=== PATIENT | female | born 1970 | race Caucasian/White ===

== ENCOUNTER 2017-09-09 22:54 | Emergency (ER) | payer OTHER ==
[2017-09-10 00:43] VITALS: BP 116/79; PULSE 82; TEMP 98.3; BMI 27.4
--- NOTE | 2017-09-10 01:01 | PDOC ---
History of Present Illness - General Chief Complaint: Injury Stated Complaint: FALL INJURY Time Seen by Provider: 09/10/17 00:28 History Source: Patient Exam Limitations: No Limitations - History of Present Illness Initial Comments: 09/10/17 02:20 47-year-old female with a history of colitis, Lyme disease and unknown thyroid disease presents to the emergency department complaining of right anterior lower rib pains after she slipped and fell 24 hours ago. Patient states she slipped down 3 steps on her right side causing 3/10 dull nonradiating intermittent discomfort. The pain is exacerbated on touch and alleviated at rest. Patient states since her fall, the pain has subsided tremendously without any pain medication. Patient denies any head injuries, neck/back pains, chest pain, shortness of breath, abdominal pains, flank pains, urinary symptoms, extremity numbness or tingling sensation, bladder or bowel dysfunction. Occurred: reports: yesterday Pain Location: reports: other (right ant ribs) Past History - Past Medical History Allergies/Adverse Reactions: Allergies Allergy/AdvReac Type Severity Reaction Status Date / Time erythromycin base Allergy Mild Verified 09/10/17 00:42 [Erythromycin Base] Home Medications: Ambulatory Orders Ibuprofen [Motrin -] 600 mg PO QID #15 tablet 02/05/14 Ondansetron Oral Solution [Zofran Oral Solution 4 MG/5 ML -] 4 mg PO TID #10 mg 09/02/14 Tramadol HCl 50 mg PO TID #14 tablet 09/02/14 GI Disorders: Yes (colitis) Thyroid Disease: Yes (hypo) - Surgical History Appendectomy: Yes (1980) - Reproductive History (#): 7 Para: 5 - Immunization History Immunization Up to Date: (flu ) - Suicide/Smoking/Psychosocial Hx Smoking Status: No Smoking History: Never smoked Have you smoked in the past 12 months: No Number of Cigarettes Smoked Daily: 0 Information on smoking cessation initiated: No Hx Alcohol Use: No Drug/Substance Use Hx: No Substance Use Type: None Review of Systems - Review of Systems Able to Perform ROS?: Yes Comments:: 09/10/17 02:22 CONSTITUTIONAL: Absent: fever, chills, diaphoresis, generalized weakness, malaise, loss of appetite HEENT: Absent: rhinorrhea, nasal congestion, throat pain, throat swelling, difficulty swallowing, mouth swelling, ear pain, eye pain, visual Changes CARDIOVASCULAR: Absent: chest pain, loss of consciousness, palpitations, irregular heart rate, peripheral edema RESPIRATORY: Absent: cough, shortness of breath, dyspnea with exertion, orthopnea, wheezing, stridor, hemoptysis GASTROINTESTINAL: Absent: abdominal pain, abdominal distension, nausea, vomiting, diarrhea, constipation, melena, hematochezia GENITOURINARY: Absent: dysuria, frequency, urgency, hesitancy, hematuria MUSCULOSKELETAL: +right ant rib pain Absent: myalgia, arthralgia, joint swelling SKIN: Absent: rash, itching, pallor HEMATOLOGIC/IMMUNOLOGIC: Absent: easy bleeding, easy bruising, lymphadenopathy, frequent infections ENDOCRINE: Absent: unexplained weight gain, unexplained weight loss, heat intolerance, cold intolerance NEUROLOGIC: Absent: headache, focal weakness or paresthesias, dizziness, unsteady gait, seizure, mental status changes, bladder or bowel incontinence PSYCHIATRIC: Absent: anxiety, depression, suicidal or homicidal ideation, hallucinations. 09/10/17 02:22 Is the patient limited Pashto proficient: No *Physical Exam - Vital Signs Last Vital Signs Temp Pulse Resp BP Pulse Ox 98.3 F 82 20 116/79 99 09/09/17 22:54 09/09/17 22:54 09/09/17 22:54 09/09/17 22:54 09/09/17 22:54 - Physical Exam Comments: 09/10/17 02:22 GENERAL: Well developed, well nourished. Awake and alert. No acute distress. HEENT: Normocephalic, atraumatic. PERRLA, EOMI. No conjunctival pallor. Sclera are non- icteric. Moist mucous membranes. Oropharynx is clear. NECK: Supple. Full ROM. No JVD. Carotid pulses 2+ and symmetric, without bruits. No thyromegaly. No lymphadenopathy. CARDIOVASCULAR: Regular rate and rhythm. No murmurs, rubs, or gallops. Distal pulses are 2+ and symmetric. PULMONARY: No evidence of respiratory distress. Lungs clear to auscultation bilaterally. No wheezing, rales or rhonchi. ABDOMINAL: Soft. Non-tender. Non-distended. No rebound or guarding. No organomegaly. Normoactive bowel sounds. MUSCULOSKELETAL Normal range of motion at all joints. No bony deformities or tenderness. No CVA tenderness. EXTREMITIES: No cyanosis. No clubbing. No edema. No calf tenderness. SKIN: Warm and dry. Normal capillary refill. No rashes. No jaundice. ED Treatment Course - RADIOLOGY Radiograph Interpretation: 09/10/17 02:24 CXR 2v nad...JOSELIN SCHWARTZ *DC/Admit/Observation/Transfer Diagnosis at time of Disposition: Contusion Qualifiers: Encounter type: initial encounter Contusion area: thoracic wall Contusion of thoracic wall detail: front wall of thorax Laterality: right Qualified Code(s): S20.211A - Contusion of right front wall of thorax, initial encounter - Discharge Dispostion Disposition: HOME Condition at time of disposition: Stable Admit: No - Referrals Referrals: Mae Montano [Primary Care Provider] - - Patient Instructions Printed Discharge Instructions: DI for Contusion Additional Instructions: Ice; 20 mins on alternating with 20 mins off for 48 hours while awake. Rest Elevate Follow up with your orthopedic surgeon or the one listed on the discharge form. Return to the ER for severe/persistent/worsening symptoms, extremity numbness/ tingling sensation. - Post Discharge Activity
[2017-09-10] MEDS ORDERED: KETOROLAC TROMETHAMINE 60 MG/2 ML VIAL IM ONE (02:17)
[2017-09-10] MEDS ORDERED: KETOROLAC TROMETHAMINE 60 MG/2 ML VIAL ONE (02:23)
== END 2017-09-10 02:33 | disposition home or self-care (01) ==
LOC: JER 22:54
PROC: 3E0233Z Introduction of Anti-inflammatory into Muscle, Percutaneous Approach (ICD-10-PCS; principal; 2017-09-09)
DX: S20.211A Contusion of right front wall of thorax, initial encounter (principal); W10.8XXA Fall (on) (from) other stairs and steps, initial encounter; Y93.89 Activity, other specified; Y92.89 Other specified places as the place of occurrence of the external cause; Y99.8 Other external cause status; E03.9 Hypothyroidism, unspecified; Z87.19 Personal history of other diseases of the digestive system
CPT/HCPCS: 71046-TC; 84703; 96372; 99283-25

== ENCOUNTER 2018-01-05 19:18 | Emergency (ER) | payer OTHER ==
--- NOTE | 2018-01-05 19:23 | PDOC ---
Rapid Medical Evaluation Time Seen by Provider: 01/05/18 19:20 Medical Evaluation: Allergies Allergy/AdvReac Type Severity Reaction Status Date / Time erythromycin base Allergy Mild Verified 09/10/17 00:42 [Erythromycin Base] 01/05/18 19:20 I have performed a brief in-person evaluation of this patient. The patient presents with a chief complaint of: mid back pain radiating to upper abdomen for 1 week Pertinent physical exam findings: Lungs CTAB. Abd SNTND. I have ordered the following: nothing The patient will proceed to the ED for further evaluation. Discharge Disposition - Diagnosis Back pain - Referrals - Patient Instructions - Post Discharge Activity
[2018-01-05 19:25] VITALS: BP 107/60; PULSE 75; TEMP 98.2; BMI 31.1
[2018-01-05] MEDS ORDERED: KETOROLAC TROMETHAMINE 60 MG/2 ML VIAL IM ONE (19:55)
--- NOTE | 2018-01-05 20:00 | PDOC ---
History of Present Illness - General Chief Complaint: Back Pain Stated Complaint: BACK PAIN Time Seen by Provider: 01/05/18 19:20 History Source: Patient Exam Limitations: No Limitations - History of Present Illness Initial Comments: 01/05/18 19:56 47-year-old female presents to the ED with complaints of back pain for the past week worsen with movement and deep breathing. Patient states pain is now rating to bilateral ribs. Patient denies nausea vomiting, dysuria, history of renal colic, history of UTI, diarrhea, abdominal pain, abdominal distention, rash, shortness of breath or chest pain. Timing/Duration: 1 week Severity: mild Associated Symptoms: reports: denies symptoms Past History - Travel Traveled outside of the country in the last 30 days: No - Past Medical History Allergies/Adverse Reactions: Allergies Allergy/AdvReac Type Severity Reaction Status Date / Time erythromycin base Allergy Mild Verified 01/05/18 19:21 [Erythromycin Base] Home Medications: Ambulatory Orders NK [No Known Home Medication] 01/05/18 COPD: No GI Disorders: Yes (colitis) Thyroid Disease: Yes (hypo) - Surgical History Appendectomy: Yes (1980) - Reproductive History (#): 7 Para: 5 - Immunization History Immunization Up to Date: (flu ) - Suicide/Smoking/Psychosocial Hx Smoking Status: No Smoking History: Never smoked Have you smoked in the past 12 months: No Number of Cigarettes Smoked Daily: 0 Information on smoking cessation initiated: No Hx Alcohol Use: No Drug/Substance Use Hx: No Substance Use Type: None Patient Lives Alone: No Lives with/in: spouse/SO Review of Systems - Review of Systems Able to Perform ROS?: No Constitutional: No: Symptoms Reported HEENTM: No: Symptoms Reported Respiratory: No: Symptoms reported Cardiac (ROS): No: Symptoms Reported ABD/GI: No: Symptoms Reported : No: Symptoms Reported Musculoskeletal: Yes: Back Pain, Joint Pain (bilateral ribs) Integumentary: No: Symptoms Reported Neurological: No: Symptoms reported *Physical Exam - Vital Signs Last Vital Signs Temp Pulse Resp BP Pulse Ox 98.2 F 75 16 107/60 100 01/05/18 19:21 01/05/18 19:21 01/05/18 19:21 01/05/18 19:21 01/05/18 19:21 - Physical Exam General Appearance: Yes: Nourished, Appropriately Dressed. No: Apparent Distress Neck: positive: Normal Thyroid, Supple. negative: Decreased range of motion Respiratory/Chest: positive: Lungs Clear, Normal Breath Sounds. negative: Chest Tender, Respiratory Distress, Accessory Muscle Use, Labored Respiration Cardiovascular: positive: Regular Rhythm, Regular Rate. negative: Murmur Gastrointestinal/Abdominal: positive: Soft. negative: Tenderness Musculoskeletal: positive: Other (bilateral paraspinous at t 12- l3. bilateral eighth and 10th ribs at mid axillary line). negative: CVA Tenderness, Vertebral Tenderness (no midline tenderness) Extremity: positive: Normal Capillary Refill. negative: Pedal Edema Integumentary: positive: Normal Color, Warm, Moist Neurologic: positive: Motor Strength 5/5 (ambulatory) ED Treatment Course - LABORATORY CBC & Chemistry Diagram: 01/05/18 21:30 01/05/18 21:30 Medical Decision Making - Medical Decision Making 01/05/18 19:59 Patient with complaints of mid back pain radiates to her ribs for the past week unrelieved with Motrin 2. Patient on exam had bilateral rib pain including bilateral paraspinous tenderness. Patient ordered for urine along with Toradol IM. 01/05/18 20:28 Laboratory Tests 01/05/18 19:45 Urine HCG, Qual Negative 01/05/18 20:58 Laboratory Tests 01/05/18 01/05/18 19:45 19:45 Urine Protein 2+ H Urine Blood 3+ H Urine Nitrite Negative Ur Leukocyte Esterase 1+ H Urine HCG, Qual Negative 01/05/18 21:08 Laboratory Tests 01/05/18 19:45 Urine Protein 2+ H Urine Blood 3+ H Urine WBC (Auto) 15 Urine RBC (Auto) 7288 Patient concerning for kidney infection, renal colic and cholecystitis since patient is now complaining of pain worsened to her right upper quadrant right rib region. Patient ordered for labs including spiral CT. 01/05/18 22:27 Laboratory Tests 01/05/18 21:30 Lipase 102 01/05/18 22:34 Laboratory Tests 01/05/18 21:30 Sodium 140 Potassium 4.0 Chloride 107 Carbon Dioxide 26 Anion Gap 7 L BUN 12 Creatinine 0.9 Random Glucose 92 Calcium 8.5 Total Bilirubin 0.6 AST 38 H ALT 60 Alkaline Phosphatase 101 Total Protein 7.6 Albumin 4.0 T shows no evidence of calcifications within the kidneys, ureters or urinary bladder suspicious for urinary tract calculi. There is no evidence of hydronephrosis or obstructive uropathy. 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 There is no significant abnormalities in the liver, spleen, pancreas adrenal glands. There is no evidence of intra-abdominal, retroperitoneal or pelvic mass lesions, fluid collections or lymphadenopathy. The uterus is enlarged most likely related to leiomyomata. There is no evidence of acute bony pathology. Patient be discharged home with recommendations to take Tylenol 975mg of Motrin 600mg. *DC/Admit/Observation/Transfer Diagnosis at time of Disposition: Back pain - Discharge Dispostion Disposition: HOME Condition at time of disposition: Good - Referrals Referrals: Mae Montano [Primary Care Provider] - - Patient Instructions Printed Discharge Instructions: DI for Thoracic Back Pain Additional Instructions: May take Motrin or Tylenol for discomfort. Your CAT scan labs are unremarkable except for blood noted in the urine which may be related to your menstrual cycle. A urine culture will be sent and if positive you receive a phone call for treatment. - Post Discharge Activity
[2018-01-05] MEDS ORDERED: KETOROLAC TROMETHAMINE 60 MG/2 ML VIAL ONE (20:02)
[2018-01-05 20:49] LABS: URINE APPEARANCE CLOUDY; URINE BILIRUBIN NEGATIVE (<2.0 mg/dL); URINE COLOR RED; URINE GLUCOSE (UA) NEGATIVE (NEGATIVE); URINE KETONE NEGATIVE (NEGATIVE); URINE NITRITE NEGATIVE (NEGATIVE); URINE UROBILINOGEN NEGATIVE mg/dL (0.2-1.0)
[2018-01-05 20:50] LABS: URINE LEUK ESTERASE 1+ (NEGATIVE); URINE PROTEIN 2+ (NEGATIVE)
[2018-01-05 20:55] LABS: EPI CELLS RARE /HPF (FEW)
[2018-01-05 21:40] LABS: BASO % 0.8 % (0-2.0); EOS % 1.8 % (0-4.5); HEMATOCRIT 38.6 % (32.4-45.2); HEMOGLOBIN 13.2 GM/dL (10.7-15.3); LYMPH % 22.2 % (8-40); MCH 29.9 pg (25.7-33.7); MCHC 34.1 g/dl (32.0-36.0); MEAN CELL VOLUME 87.7 fl (80-96); MEAN PLT VOLUME 7.9 fl (7.5-11.1); MONO % 6.8 % (3.8-10.2); NEUT % 68.4 % (42.8-82.8); PLATELET COUNT 293 K/MM3 (134-434); WHITE BLOOD COUNT 10.2 K/mm3 (4.0-10.0)
[2018-01-05 22:23] LABS: CREATININE 0.9 mg/dL (0.55-1.02); GLUCOSE,RANDOM 92 mg/dL (74-106); SODIUM 140 mmol/L (136-145)
[2018-01-05 22:24] LABS: ANION GAP 7 (8-16); BILIRUBIN,TOTAL 0.6 mg/dL (0.2-1.0); CALCIUM 8.5 mg/dL (8.5-10.1); CHLORIDE 107 mmol/L (98-107); CO2 26 mmol/L (21-32); SGOT/AST 38 U/L (15-37); SGPT/ALT 60 U/L (12-78); TOT PROT 7.6 g/dl (6.4-8.2)
[2018-01-05 22:25] LABS: ALK PHOS 101 U/L (45-117); BLOOD UREA NITROGEN 12 mg/dL (7-18)
== END 2018-01-05 22:42 | disposition home or self-care (01) ==
LOC: JERFT 19:18
PROC: 3E0233Z Introduction of Anti-inflammatory into Muscle, Percutaneous Approach (ICD-10-PCS; principal; 2018-01-05)
DX: M54.6 Pain in thoracic spine (principal); E03.9 Hypothyroidism, unspecified; Z87.19 Personal history of other diseases of the digestive system
CPT/HCPCS: 36415; 74176; 80053; 81003; 81015; 83690; 84703; 85025; 87086; 99281-25

== ENCOUNTER 2018-01-10 19:26 | Emergency (ER) | payer OTHER ==
[2018-01-10 19:33] VITALS: BP 126/84; PULSE 66; TEMP 98; BMI 29.2
--- NOTE | 2018-01-10 19:35 | PDOC ---
Rapid Medical Evaluation Time Seen by Provider: 01/10/18 19:31 Medical Evaluation: Allergies Allergy/AdvReac Type Severity Reaction Status Date / Time erythromycin base Allergy Mild Verified 01/05/18 19:21 [Erythromycin Base] 01/10/18 19:32 Pt presents with abdominal pain, back pain and urinary symptoms since last week. Evaluated in our ED on 01/06/18 and sent home. Urine culture from 01/06/18 contaminated. Exam: ambulatory, no respiratory distress; TTP suprapubic area, otherwise soft, no rebound or guarding. Orders: UA, UC, Upreg Pt. to proceed to ED for further evaluation.
[2018-01-10 19:58] LABS: URINE APPEARANCE CLEAR; URINE BILIRUBIN NEGATIVE (<2.0 mg/dL); URINE COLOR COLORLESS; URINE GLUCOSE (UA) NEGATIVE (NEGATIVE); URINE KETONE NEGATIVE (NEGATIVE); URINE LEUK ESTERASE NEGATIVE (NEGATIVE); URINE NITRITE NEGATIVE (NEGATIVE); URINE PROTEIN NEGATIVE (NEGATIVE); URINE UROBILINOGEN NEGATIVE mg/dL (0.2-1.0)
[2018-01-10 20:16] LABS: EPI CELLS RARE /HPF (FEW)
--- NOTE | 2018-01-10 23:11 | PDOC ---
History of Present Illness - General History Source: Patient Exam Limitations: No Limitations - History of Present Illness Initial Comments: 01/10/18 23:27 The patient is a 47 year old female, with a significant past medical history of colitis, Lyme disease, and hypothyroidism, who presents to the emergency department with, 6 days of upper and lower abdominal pain. As per patient, several weeks ago she fell and hurt her right lower ribs. She reports her last menses to be 4 days ago and since then has experienced associated nausea. The patient had a urine culture tested 6 days ago which they believe was contaminated due to the amount of blood and repeated. The patient describes her pain as not as intense. She reports taking Naprosyn, with relief. The patient reports urinary frequency at baseline. She denies recent fevers, chills, headache or dizziness. She denies recent vomit , diarrhea or constipation. She denies recent dysuria or hematuria. She denies recent chest pain or shortness of breath. Allergies: Erythromycin base. Social history: Nonsmoker. Denies EtOH use and recreational drug use. Primary Care Physician: Dr. Montano <Leonardo Workman - Last Filed: 01/11/18 00:42> - General History Source: Patient <Neelam Purvisan - Last Filed: 01/11/18 00:48> - General Chief Complaint: Pain Stated Complaint: PAIN Time Seen by Provider: 01/10/18 19:31 Past History <Leonardo Workman - Last Filed: 01/11/18 00:42> - Past Medical History COPD: No GI Disorders: Yes (colitis) Thyroid Disease: Yes (hypo) - Surgical History Appendectomy: Yes (1980) - Reproductive History (#): 7 Para: 5 - Immunization History Immunization Up to Date: (flu ) - Suicide/Smoking/Psychosocial Hx Smoking Status: No Smoking History: Never smoked Have you smoked in the past 12 months: No Number of Cigarettes Smoked Daily: 0 Hx Alcohol Use: No Drug/Substance Use Hx: No Substance Use Type: None <Eddie Purvis - Last Filed: 01/11/18 00:48> - Past Medical History Allergies/Adverse Reactions: Allergies Allergy/AdvReac Type Severity Reaction Status Date / Time erythromycin base Allergy Mild Verified 01/10/18 19:33 [Erythromycin Base] Home Medications: Ambulatory Orders NK [No Known Home Medication] 01/05/18 Review of Systems - Review of Systems Able to Perform ROS?: Yes Comments:: 01/10/18 23:28 CONSTITUTIONAL: Absent: fever, no chills, no fatigue EYES: Absent: visual changes ENT: Absent: ear pain, no sore throat CARDIOVASCULAR: Absent: chest pain, no palpitations RESPIRATORY: Absent: cough, no SOB GI: Present: Upper and lower abdominal pain. Nausea. Absent: no vomiting, no constipation, no diarrhea GENITOURINARY: Present: Frequency (baseline). Absent: dysuria, no hematuria MUSKULOSKELETAL: Absent: back pain, no arthralgia, no myalgia SKIN: Absent: rash NEURO: Absent: headache All Other Systems: Reviewed and Negative <Leonardo Workman - Last Filed: 01/11/18 00:42> *Physical Exam - Vital Signs Last Vital Signs Temp Pulse Resp BP Pulse Ox 98.0 F 66 18 126/84 100 01/10/18 19:31 01/10/18 19:31 01/10/18 19:31 01/10/18 19:31 01/10/18 19:31 - Physical Exam Comments: 01/10/18 23:28 GENERAL: Well-appearing, well-nourished. No apparent distress. HEENT: Normocephalic, atraumatic. PERRL, EOM intact. CARDIOVASCULAR: Normal S1, S2. Regular rate and rhythm. PULMONARY: Clear to auscultation bilaterally. ABDOMEN: Soft, non-distended, non-tender. EXTREMITIES: Normal ROM in all four extremities. No gross deformities. SKIN: Warm, dry. No rash NEUROLOGICAL: No focal neurological deficits. <Leonardo Workman - Last Filed: 01/11/18 00:42> - Vital Signs Last Vital Signs Temp Pulse Resp BP Pulse Ox 98.0 F 66 18 126/84 100 01/10/18 19:31 01/10/18 19:31 01/10/18 19:31 01/10/18 19:31 01/10/18 19:31 <Eddie Purvis - Last Filed: 01/11/18 00:48> Moderate Sedation - Procedure Monitoring Vital Signs: Vital Signs Temp Pulse Resp BP Pulse Ox 98.0 F 66 18 126/84 100 01/10/18 19:31 01/10/18 19:31 01/10/18 19:31 01/10/18 19:31 01/10/18 19:31 <Leonardo Workman - Last Filed: 01/11/18 00:42> - Procedure Monitoring Vital Signs: Vital Signs Temp Pulse Resp BP Pulse Ox 98.0 F 66 18 126/84 100 01/10/18 19:31 01/10/18 19:31 01/10/18 19:31 01/10/18 19:31 01/10/18 19:31 <Eddie Purvis - Last Filed: 01/11/18 00:48> ED Treatment Course - ADDITIONAL ORDERS Additional order review: Laboratory Results 01/10/18 19:36 Urine Color Colorless Urine Appearance Clear Urine pH 6.0 Ur Specific Baggs 1.004 Urine Protein Negative Urine Glucose (UA) Negative Urine Ketones Negative Urine Blood 1+ H Urine Nitrite Negative Urine Bilirubin Negative Urine Urobilinogen Negative Ur Leukocyte Esterase Negative Urine WBC (Auto) 2 Urine RBC (Auto) 4 Ur Epithelial Cells Rare <Leonardo Workman - Last Filed: 01/11/18 00:42> - ADDITIONAL ORDERS Additional order review: Laboratory Results 01/10/18 19:36 Urine Color Colorless Urine Appearance Clear Urine pH 6.0 Ur Specific Baggs 1.004 Urine Protein Negative Urine Glucose (UA) Negative Urine Ketones Negative Urine Blood 1+ H Urine Nitrite Negative Urine Bilirubin Negative Urine Urobilinogen Negative Ur Leukocyte Esterase Negative Urine WBC (Auto) 2 Urine RBC (Auto) 4 Ur Epithelial Cells Rare <Eddie Purvis - Last Filed: 01/11/18 00:48> Medical Decision Making - Medical Decision Making 01/11/18 00:42 EXAM: US ABDOMEN US -LIMITED HISTORY: Concern for liver and gallbladder disease FINDINGS: Pancreas appears normal. Aorta appears normal. Liver is echogenic suggesting fatty infiltration. Gallbladder appears normal. Common bile duct is 4 mm which is normal Right kidney appears normal IMPRESSION: Fatty liver Read by: Uri Krishnan MD <Leonardo Workman - Last Filed: 01/11/18 00:42> - Medical Decision Making 01/11/18 00:47 Dr. Purvis: The scribe's documentation has been prepared under my direction and personally reviewed by me in its entirery. I confirm that the note above accurately reflects all work, treatment, procedures, and medical decision making performed by me. <Eddie Purvis - Last Filed: 01/11/18 00:48> *DC/Admit/Observation/Transfer - Attestations Scribe Attestion: 01/10/18 23:28 Documentation prepared by Leonardo Workman, acting as medical accounting clerk for Eddie Purvis DO. <Leonardo Workman - Last Filed: 01/11/18 00:42> - Discharge Dispostion Decision to Admit order: No <Eddie Purvis - Last Filed: 01/11/18 00:48> Diagnosis at time of Disposition: Fatty liver - Discharge Dispostion Disposition: HOME Condition at time of disposition: Stable - Referrals Referrals: Mae Montano [Primary Care Provider] - Suresh Allison MD [Staff Physician] - Alfred Worrell MD [Staff Physician] - - Patient Instructions Printed Discharge Instructions: Nonalcoholic Fatty Liver Disease, DI for Musculoskeletal Pain - Post Discharge Activity
== END 2018-01-11 00:54 | disposition home or self-care (01) ==
LOC: JER 19:26
DX: K76.0 Fatty (change of) liver, not elsewhere classified (principal); Z87.19 Personal history of other diseases of the digestive system
CPT/HCPCS: 76705-TC; 81003; 81015; 87086; 99282-25

== ENCOUNTER 2018-10-04 10:06 | Emergency (ER) | payer OTHER ==
[2018-10-04 10:17] VITALS: BP 137/50; PULSE 96; TEMP 98.6; BMI 32.3
--- NOTE | 2018-10-04 11:22 | PDOC ---
History of Present Illness - General Chief Complaint: Cold Symptoms Stated Complaint: BREATHING TROUBLE Time Seen by Provider: 10/04/18 11:07 History Source: Patient Exam Limitations: No Limitations - History of Present Illness Initial Comments: 10/04/18 12:23 Patient is a 48-year-old female who presents to the ER for 2 days of cough. Patient states that she has had a very dry cough and it hurts to breathe. She states that her brother who lives with her has been diagnosed with the flu and strep throat. She states that every time she takes a deep breath she coughs. Admits to chills. Is unsure whether she had a fever. Denies earache, sore throat , nausea, vomiting and diarrhea. She did not get a flu shot this year. Past History - Travel Traveled outside of the country in the last 30 days: No Close contact w/someone who was outside of country & ill: No - Past Medical History Allergies/Adverse Reactions: Allergies Allergy/AdvReac Type Severity Reaction Status Date / Time erythromycin base Allergy Mild Verified 10/04/18 10:17 [Erythromycin Base] Home Medications: Ambulatory Orders Albuterol Sulfate Inhaler - [Ventolin HFA Inhaler -] 1 - 2 inh PO Q4H #1 inhaler 10/04/18 Guaifenesin [Robitussin] 10 ml PO Q8H #200 ml 10/04/18 Oseltamivir Phosphate [Tamiflu] 75 mg PO DAILY #10 capsule 10/04/18 predniSONE [Deltasone -] 40 mg PO DAILY #8 tablet 10/04/18 COPD: No GI Disorders: Yes (colitis) Thyroid Disease: Yes (hypo, MS, LYME'S DISEASE) - Surgical History Appendectomy: Yes (1980) - Reproductive History (#): 7 Para: 5 - Immunization History Immunization Up to Date: (flu ) - Suicide/Smoking/Psychosocial Hx Smoking Status: No Smoking History: Never smoked Have you smoked in the past 12 months: No Number of Cigarettes Smoked Daily: 0 Information on smoking cessation initiated: No Hx Alcohol Use: No Drug/Substance Use Hx: No Substance Use Type: None Review of Systems - Review of Systems Able to Perform ROS?: Yes Comments:: 10/04/18 11:22 CONSTITUTIONAL: Absent: fever, chills, diaphoresis, generalized weakness, malaise, loss of appetite HEENT: Absent: rhinorrhea, nasal congestion, throat pain, throat swelling, difficulty swallowing, mouth swelling, ear pain, eye pain, visual Changes CARDIOVASCULAR: Absent: chest pain, loss of consciousness, palpitations, irregular heart rate, peripheral edema RESPIRATORY: Present: cough Absent: shortness of breath, dyspnea with exertion, orthopnea, wheezing, stridor, hemoptysis GASTROINTESTINAL: Absent: abdominal pain, abdominal distension, nausea, vomiting, diarrhea, constipation, melena, hematochezia GENITOURINARY: Absent: dysuria, frequency, urgency, hesitancy, hematuria, flank pain, genital pain MUSCULOSKELETAL: Absent: myalgia, arthralgia, joint swelling SKIN: Absent: rash, itching, pallor HEMATOLOGIC/IMMUNOLOGIC: Absent: easy bleeding, easy bruising, lymphadenopathy, frequent infections ENDOCRINE: Absent: unexplained weight gain, unexplained weight loss, heat intolerance, cold intolerance NEUROLOGIC: Absent: headache, focal weakness or paresthesias, dizziness, unsteady gait, seizure, mental status changes, bladder or bowel incontinence PSYCHIATRIC: Absent: anxiety, depression, suicidal or homicidal ideation, hallucinations. Is the patient limited Arabic proficient: No *Physical Exam - Vital Signs Last Vital Signs Temp Pulse Resp BP Pulse Ox 98.6 F 96 H 19 137/50 L 100 10/04/18 10:15 10/04/18 10:15 10/04/18 10:15 10/04/18 10:15 10/04/18 10:15 - Physical Exam Comments: 10/04/18 11:22 GENERAL: Well developed, well nourished. Awake and alert. No acute distress. HEENT: Normocephalic, atraumatic. PERRLA, EOMI. No conjunctival pallor. Sclera are non- icteric. Moist mucous membranes. Oropharynx is clear. NECK: Supple. Full ROM. No JVD. Carotid pulses 2+ and symmetric, without bruits. No thyromegaly. No lymphadenopathy. CARDIOVASCULAR: Regular rate and rhythm. No murmurs, rubs, or gallops. Distal pulses are 2+ and symmetric. PULMONARY: No evidence of respiratory distress. Lungs with scattered wheezing. Fair aeration to the bases. No rales or rhonchi. ABDOMINAL: Soft. Non-tender. Non-distended. No rebound or guarding. No organomegaly. Normoactive bowel sounds. MUSCULOSKELETAL Normal range of motion at all joints. No bony deformities or tenderness. No CVA tenderness. EXTREMITIES: No cyanosis. No clubbing. No edema. No calf tenderness. SKIN: Warm and dry. Normal capillary refill. No rashes. No jaundice. NEUROLOGICAL: Alert, awake, appropriate. Cranial nerves 2-12 intact. No deficits to light touch and temperature in face, upper extremities and lower extremities. No motor deficits in the in face, upper extremities and lower extremities. Normoreflexic in the upper and lower extremities. Normal speech. Toes are down- going bilaterally. Gait is normal without ataxia. PSYCHIATRIC: Cooperative. Good eye contact. Appropriate mood and affect. Moderate Sedation - Procedure Monitoring Vital Signs: Procedure Monitoring Vital Signs Temperature 98.6 F 10/04/18 10:15 Pulse Rate 96 H 10/04/18 10:15 Respiratory Rate 10/04/18 10:15 Blood Pressure 137/50 L 10/04/18 10:15 O2 Sat by Pulse Oximetry (%) 100 10/04/18 10:15 Medical Decision Making - Medical Decision Making 10/04/18 12:24 Patient is a 48-year-old female who presents with 2 days of dry cough and chills. On exam patient with scattered expiratory wheezes, coughs with deep inhalation. Will give DuoNeb's and steroids at this time Rapid flu obtained. Reevaluate 10/04/18 13:55 Flu negative Most likely bronchitis Will give tamiflu prophylaxis as brother has influenza DC home I discussed the physical exam findings, ancillary test results and final diagnoses with the patient. I answered all of the patient's questions. The patient was satisfied with the care received and felt comfortable with the discharge plan and treatment plan. The Patient agrees to follow up with the primary care physician/specialist within 24-72 hours. Return precautions were given. *DC/Admit/Observation/Transfer Diagnosis at time of Disposition: Bronchitis - Discharge Dispostion Disposition: HOME Condition at time of disposition: Stable Decision to Admit order: No - Referrals Referrals: Elisa Watters [Primary Care Provider] - - Patient Instructions Printed Discharge Instructions: DI for Acute Bronchitis Additional Instructions: You have bronchitis. Your flu testing was negative today. However given her sick contacts at home. Prophylaxis Tamiflu was given. Please use the albuterol inhaler every 4 hours for your cough and shortness of breath. Please take the prednisone as directed. Follow-up with her primary care doctor this week. Return to the ER for any new or worsening symptoms including difficulty breathing, shortness of breath or lightheadedness. - Post Discharge Activity Forms/Work/School Notes: Back to Work
[2018-10-04] MEDS ORDERED: DEXAMETHASONE LIQUID 0.5 MG/5 ML 240 ML BULK BOTTLE PO ONE (11:41)
[2018-10-04] MEDS ORDERED: DEXAMETHASONE SOD PHOSPHATE 10 MG/1 ML VIAL ONE (11:46)
[2018-10-04] MEDS ORDERED: ALBUTEROL SO4 2.5/IPRATROPIUM 0.5 INH SOL 3 ML VIAL.NEB. NEB ONE (11:46)
[2018-10-04] MEDS: ALBUTEROL SO4 2.5/IPRATROPIUM 0.5 INH SOL 3 ML VIAL.NEB. NEB SCH ×3 (11:59→12:52)
== END 2018-10-04 14:05 | disposition home or self-care (01) ==
LOC: JERFT 10:06
PROC: 3E0F7GC Introduction of Other Therapeutic Substance into Respiratory Tract, Via Natural or Artificial Opening (ICD-10-PCS; principal; 2018-10-04)
DX: J40 Bronchitis, not specified as acute or chronic (principal)
CPT/HCPCS: 87804; 94640; 99281-25

== ENCOUNTER 2019-01-16 04:49 | Emergency (ER) | payer OTHER ==
[2019-01-16] MEDS ORDERED: KETOROLAC TROMETHAMINE 30 MG/1 ML VIAL IVPUSH ONE (05:05)
[2019-01-16] MEDS ORDERED: METOCLOPRAMIDE HCL INJECTION 10 MG/2 ML VIAL IVPUSH ONE (05:06)
[2019-01-16 05:34] VITALS: BMI 33.2
[2019-01-16] MEDS ORDERED: SODIUM CHLORIDE 0.9% 500 ML INFUS.BAG IV ONE (05:35)
--- NOTE | 2019-01-16 05:35 | PDOC ---
History of Present Illness - General Chief Complaint: Migraine Headache Stated Complaint: MIGRAINE/VOMITING Time Seen by Provider: 01/16/19 05:04 - History of Present Illness Initial Comments: 01/16/19 05:31 CHIEF COMPLAINT: multi-system complaints HISTORY OF PRESENT ILLNESS: 48 yo F presents to ED with multiple complaints including nausea and vomiting, nasal congestion, cough, and left sided headache. She reports persistent vomiting since this morning, approximately 4- 5 episodes in the last two hours. Patient also states she has had "green mucus coming out" x 3 days. Patient reports she has had an intermittent headache in the last few days but "now it's terrible and not going away." She has not taken any medications at home. No recent travel or sick contacts. PAST MEDICAL HISTORY: Denies past medical history FAMILY HISTORY: Denies SOCIAL HISTORY: Denies tobacco, alcohol, illicit drug use. SURGICAL HISTORY: Denies ALLERGIES: No known drug allergies REVIEW OF SYSTEMS General/Constitutional: Chills. Denies fever. Denies weakness, weight change. HEENT: Denies change in vision. Denies ear pain or discharge. Denies sore throat. Cardiovascular: Denies chest pain or shortness of breath. Respiratory: Cough x 3 days. Gastrointestinal: Vomiting since this morning. Denies diarrhea or constipation. Denies rectal bleeding. Genitourinary: Denies dysuria, frequency, or change in urination. Musculoskeletal: Denies joint or muscle swelling or pain. Denies neck or back pain. Skin and breasts: Denies rash or easy bruising. Neurologic: Denies headache, vertigo, loss of consciousness, or loss of sensation. PHYSICAL EXAM General Appearance: Well-appearing, appropriately dressed. No apparent distress. HEENT: EOMI, PERRLA, normal ENT inspection, normal voice, TMs normal, pharynx normal. No conjunctival pallor. No photophobia, scleral icterus. Neck: Supple. Trachea midline. No tenderness, rigidity, carotid bruit, stridor , lymphadenopathy, or thyromegaly. Respiratory/Chest: Lungs CTAB. No shortness of breath, chest tenderness, respiratory distress, accessory muscle use. No crackles, rales, rhonchi, stridor , wheezing, dullness Cardiovascular: RRR. S1, S2. No JVD, murmur, bradycardia, tachycardia. Vascular Pulses: Dorsalis-Pedis (R): 2+, Dorsalis-Pedis (L): 2+ Gastrointestinal/Abdominal: Normal bowel sounds. Abdomen soft, non-distended. No tenderness or rebound tenderness. No organomegaly, pulsatile mass, guarding , hernia, hepatomegaly, splenomegaly. Lymphatic: No adenopathy, tenderness. Musculoskeletal/Extremities: Normal inspection. FROM of all extremities, normal capillary refill. Pelvis Stable. No CVA tenderness. No tenderness to extremities, pedal edema, swelling, erythema or deformity. Integumentary: Appropriate color, dry, warm. No cyanosis, erythema, jaundice or rash Neurologic: field education coordinator II-XII intact. Fully oriented, alert. Appropriate mood/affect. Motor strength 5/5. No appreciable EOM palsy, facial droop or sensory deficit. Past History - Past Medical History Allergies/Adverse Reactions: Allergies Allergy/AdvReac Type Severity Reaction Status Date / Time erythromycin base Allergy Mild Verified 10/04/18 10:17 [Erythromycin Base] Home Medications: Ambulatory Orders Albuterol Sulfate Inhaler - [Ventolin HFA Inhaler -] 1 - 2 inh PO Q4H #1 inhaler 10/04/18 Guaifenesin [Robitussin] 10 ml PO Q8H #200 ml 10/04/18 Oseltamivir Phosphate [Tamiflu] 75 mg PO DAILY #10 capsule 10/04/18 predniSONE [Deltasone -] 40 mg PO DAILY #8 tablet 10/04/18 COPD: No GI Disorders: Yes (colitis) Thyroid Disease: Yes (hypo, MS, LYME'S DISEASE) - Surgical History Appendectomy: Yes (1980) - Reproductive History (#): 7 Para: 5 - Immunization History Immunization Up to Date: (flu ) - Suicide/Smoking/Psychosocial Hx Smoking Status: No Smoking History: Never smoked Have you smoked in the past 12 months: No Number of Cigarettes Smoked Daily: 0 Hx Alcohol Use: No Drug/Substance Use Hx: No Substance Use Type: None ED Treatment Course - RADIOLOGY Radiology Studies Ordered: Category Date Time Status CHEST PA & LAT [RAD] Stat Radiology 01/16/19 05:21 Ordered Medical Decision Making - Medical Decision Making 01/16/19 05:35 48 yo F presents to ED with multiple complaints including nausea and vomiting, nasal congestion, cough, and left sided headache. -labs, urine -fluids, toradol, reglan, benadryl *DC/Admit/Observation/Transfer - Discharge Dispostion Condition at time of disposition: Fair - Referrals - Patient Instructions - Post Discharge Activity
[2019-01-16] MEDS ORDERED: KETOROLAC TROMETHAMINE 30 MG/1 ML VIAL ONE (06:40)
[2019-01-16] MEDS ORDERED: METOCLOPRAMIDE HCL INJECTION 10 MG/2 ML VIAL ONE (06:40)
--- NOTE | 2019-01-16 06:52 | PDOC ---
*Physical Exam - Vital Signs Last Vital Signs Temp Pulse Resp BP Pulse Ox 98.4 F 85 20 123/70 97 01/16/19 04:59 01/16/19 04:59 01/16/19 04:59 01/16/19 04:59 01/16/19 04:59 ED Treatment Course - LABORATORY CBC & Chemistry Diagram: 01/16/19 06:33 01/16/19 06:33 Medical Decision Making - Medical Decision Making 01/16/19 06:51 Patient seen by the advanced practice provider under my direct supervision. Ancillary testing reviewed as necessary. I agree with plan as outlined by the advanced practice provider. Case signed out to oncoming provider by JACI *DC/Admit/Observation/Transfer Diagnosis at time of Disposition: Vomiting - Discharge Dispostion Condition at time of disposition: Fair - Referrals - Patient Instructions - Post Discharge Activity
[2019-01-16 06:55] LABS: BASO % 0.6 % (0-2.0); EOS % 1.4 % (0-4.5); HEMATOCRIT 34.2 % (32.4-45.2); HEMOGLOBIN 11.7 GM/dL (10.7-15.3); LYMPH % 14.4 % (8-40); MCH 29.3 pg (25.7-33.7); MCHC 34.1 g/dl (32.0-36.0); MEAN CELL VOLUME 85.9 fl (80-96); MEAN PLT VOLUME 8.6 fl (7.5-11.1); MONO % 5.8 % (3.8-10.2); NEUT % 77.8 % (42.8-82.8); PLATELET COUNT 295 K/MM3 (134-434); RBC 3.98 M/mm3 (3.60-5.2); RDW 13.3 % (11.6-15.6); WHITE BLOOD COUNT 12.9 K/mm3 (4.0-10.0)
--- NOTE | 2019-01-16 07:13 | PDOC ---
*Physical Exam - Vital Signs Last Vital Signs Temp Pulse Resp BP Pulse Ox 98.4 F 85 20 123/70 97 01/16/19 04:59 01/16/19 04:59 01/16/19 04:59 01/16/19 04:59 01/16/19 04:59 - Physical Exam General Appearance: Yes: Nourished, Appropriately Dressed. No: Apparent Distress HEENT: positive: EOMI, DENILSON, Normal Voice, TMs Normal, Pharynx Normal, Sinus Tenderness (L frontal/maxillary region) Neck: positive: Trachea midline, Supple. negative: Tender, Rigid, Lymphadenopathy (R), Lymphadenopathy (L) Respiratory/Chest: positive: Lungs Clear, Normal Breath Sounds. negative: Respiratory Distress, Accessory Muscle Use, Rhonchi, Stridor, Wheezing Cardiovascular: positive: Regular Rhythm, Regular Rate, S1, S2 (present). negative: Murmur ED Treatment Course - LABORATORY CBC & Chemistry Diagram: 01/16/19 06:33 01/16/19 06:33 - ADDITIONAL ORDERS Additional order review: Laboratory Results 01/16/19 06:33 Lipase 128 - Medications Given in the ED: ED Medications Discontinued Medications Generic Name Dose Route Start Last Admin Trade Name Freq PRN Reason Stop Dose Admin Diphenhydramine HCl 50 mg 01/16/19 05:06 01/16/19 06:49 Benadryl Injection - IVPUSH 01/16/19 05:07 50 mg ONCE ONE Administration Ketorolac Tromethamine 30 mg 01/16/19 05:05 01/16/19 06:49 Toradol Injection - IVPUSH 01/16/19 05:06 30 mg ONCE ONE Administration Metoclopramide HCl 10 mg 01/16/19 05:06 01/16/19 06:49 Reglan Injection - IVPUSH 01/16/19 05:07 10 mg ONCE ONE Administration Sodium Chloride 1,000 ml 01/16/19 05:35 01/16/19 06:49 Normal Saline - IV 01/16/19 05:36 1,000 ml ONCE ONE Administration Medical Decision Making - Medical Decision Making 01/16/19 09:27 Sign out was received by Mary Salvador at 07:00. Pt presents with three days of congestion, body aches, and headaches -WBC at 12 -Symptoms improved with reglan/benadryl and toradol -IV Tylenol added -Still pending UP, pt to go for CXR -Suspect a sinusitis. 01/16/19 11:34 CXR with no acute chest pathology DC home with augmentin for presumed sinusitis with PCP follow up I discussed the physical exam findings, ancillary test results and final diagnoses with the patient. I answered all of the patient's questions. The patient was satisfied with the care received and felt comfortable with the discharge plan and treatment plan. The Patient agrees to follow up with the primary care physician/specialist within 24-72 hours. Return precautions were given. *DC/Admit/Observation/Transfer Diagnosis at time of Disposition: Sinusitis Qualifiers: Sinusitis location: frontal Chronicity: acute Recurrence: non-recurrent Qualified Code(s): J01.10 - Acute frontal sinusitis, unspecified - Discharge Dispostion Disposition: HOME Condition at time of disposition: Fair Decision to Admit order: No - Referrals Referrals: Salvador Dyer MD [Staff Physician] - - Patient Instructions Printed Discharge Instructions: DI for Sinusitis Additional Instructions: You were evaluated for your nasal congestion and headache today You most likely have a sinus infection Please take the augmentin with food as directed You may take the zofran every 8 hours as needed for nausea Take the mucinex to help with your congestion as directed Follow up with your primary care doctor this week Return to the ER for any new or worsening symptoms - Post Discharge Activity Forms/Work/School Notes: Back to Work
[2019-01-16 07:17] LABS: ALBUMIN 3.7 g/dl (3.4-5.0); BILIRUBIN,TOTAL 0.5 mg/dL (0.2-1); CALCIUM 8.7 mg/dL (8.5-10.1); CREATININE 0.9 mg/dL (0.55-1.3); POTASSIUM 3.9 mmol/L (3.5-5.1); TOT PROT 7.1 g/dl (6.4-8.2)
[2019-01-16] MEDS ORDERED: ACETAMINOPHEN 1000 MG/100 ML VIAL (NON FORMULARY) IVPB ONE (07:48)
[2019-01-16] MEDS ORDERED: ACETAMINOPHEN INJECTION 100 ML IVPB ONE (08:03)
[2019-01-16 08:53] LABS: EPI CELLS 4.3 /HPF (0-5/HPF); HYALINE CASTS 16 /lpf (0-8); URINE APPEARANCE CLEAR; URINE BACTERIA 303.8 /hpf (NEGATIVE); URINE BILIRUBIN NEGATIVE (NEGATIVE); URINE COLOR YELLOW; URINE GLUCOSE (UA) NEGATIVE (NEGATIVE); URINE KETONE NEGATIVE (NEGATIVE); URINE LEUK ESTERASE 2+ (NEGATIVE); URINE NITRITE NEGATIVE (NEGATIVE); URINE PROTEIN NEGATIVE (NEGATIVE); URINE RBC 6 /hpf (0-4); URINE WBC 33 /hpf (0-5)
[2019-01-16 11:41] VITALS: BP 110/68; PULSE 73; TEMP 98.7
== END 2019-01-16 12:06 | disposition home or self-care (01) ==
LOC: JER 04:49
PROC: 3E033GC Introduction of Other Therapeutic Substance into Peripheral Vein, Percutaneous Approach (ICD-10-PCS; principal; 2019-01-16)
PROC: 3E033NZ Introduction of Analgesics, Hypnotics, Sedatives into Peripheral Vein, Percutaneous Approach (ICD-10-PCS; 2019-01-16)
PROC: 3E033GC Introduction of Other Therapeutic Substance into Peripheral Vein, Percutaneous Approach (ICD-10-PCS; 2019-01-16)
PROC: 3E0333Z Introduction of Anti-inflammatory into Peripheral Vein, Percutaneous Approach (ICD-10-PCS; 2019-01-16)
DX: J01.10 Acute frontal sinusitis, unspecified (principal)
CPT/HCPCS: 36415; 71046-TC-FY; 80053; 81003; 83690; 84703; 85025; 96374; 96375; 99282-25; J0131

== ENCOUNTER 2021-02-19 21:30 | Inpatient (IN) | payer OTHER ==
[2021-02-19 21:37] VITALS: BMI 35.3
[2021-02-19] MEDS ORDERED: SODIUM CHLORIDE 1,000 ML IV STA (22:18)
[2021-02-19] MEDS ORDERED: ONDANSETRON 4 MG/2 ML VIAL IVPUSH ONE (22:30)
[2021-02-19] MEDS ORDERED: ONDANSETRON 4 MG/2 ML VIAL ONE (22:30)
[2021-02-19] MEDS ORDERED: FAMOTIDINE 20 MG/50 ML IVPB 20 MG/50 ML MG IVPB ONE ×2 (22:51→22:55)
[2021-02-19 22:59] LABS: BASO % 0.6 % (0-2.0); EOS % 0.4 % (0-4.5); HEMATOCRIT 38.2 % (32.4-45.2); HEMOGLOBIN 12.8 GM/dL (10.7-15.3); LYMPH % 16.3 % (8-40); MCHC 33.5 g/dl (32.0-36.0); MEAN CELL VOLUME 83.5 fl (80-96); MEAN PLT VOLUME 8.5 fl (7.5-11.1); MONO % 5.6 % (3.8-10.2); NEUT % 77.1 % (42.8-82.8); PLATELET COUNT 247 10^3/uL (134-434); RBC 4.57 M/mm3 (3.60-5.2); RDW 14.2 % (11.6-15.6); WHITE BLOOD COUNT 12.2 K/mm3 (4.0-10.0)
[2021-02-19 23:19] LABS: CALCIUM 9.3 mg/dL (8.5-10.1)
[2021-02-19 23:20] LABS: ALBUMIN 4.1 g/dl (3.4-5.0); BLOOD UREA NITROGEN 11.7 mg/dL (7-18); MAGNESIUM 2.2 mg/dL (1.8-2.4)
[2021-02-19 23:23] LABS: CREATININE 1.2 mg/dL (0.55-1.3)
[2021-02-19 23:24] LABS: BILIRUBIN,TOTAL 0.8 mg/dL (0.2-1); TOT PROT 7.9 g/dl (6.4-8.2)
[2021-02-19] MEDS ORDERED: METOCLOPRAMIDE HCL INJECTION 10 MG/2 ML VIAL IVPB ONE (23:33)
[2021-02-19] MEDS ORDERED: METOCLOPRAMIDE HCL INJECTION 10 MG/2 ML VIAL ONE (23:34)
[2021-02-20] MEDS ORDERED: PROCHLORPERAZINE INJECTION 10 MG/2 ML VIAL IVPB ONE (00:09)
[2021-02-20] MEDS ORDERED: PROCHLORPERAZINE INJECTION 10 MG/2 ML VIAL ONE (00:12)
[2021-02-20] MEDS ORDERED: SODIUM CHLORIDE 0.9% 500 ML INFUS.BAG IV ONE (00:12)
[2021-02-20 01:48] LABS: PH,URINE 5.5 (5.0-8.0); URINE APPEARANCE Slightly Cloudy; URINE BILIRUBIN Negative (NEGATIVE); URINE COLOR Yellow; URINE GLUCOSE (UA) Negative (NEGATIVE); URINE KETONE 3+ (NEGATIVE); URINE LEUK ESTERASE 1+ (NEGATIVE); URINE NITRITE Positive (NEGATIVE); URINE PROTEIN 1+ (NEGATIVE); URINE UROBILINOGEN 0.2 mg/dL (0.2-1.0)
[2021-02-20] MEDS ORDERED: ACETAMINOPHEN 1000 MG/100 ML VIAL (NON FORMULARY) IVPB ONE (01:54)
[2021-02-20] MEDS ORDERED: ONDANSETRON 4 MG/2 ML VIAL IVPUSH ONE (01:54)
[2021-02-20] MEDS ORDERED: CEFTRIAXONE 1 GM in DEXTROSE 5%-WATER - 100 ML IVPB ONE (02:09)
[2021-02-20] MEDS ORDERED: ACETAMINOPHEN INJECTION 100 ML IVPB ONE (03:18)
[2021-02-20] MEDS ORDERED: ONDANSETRON 4 MG/2 ML VIAL ONE (03:18)
[2021-02-20] MEDS ORDERED: CEFTRIAXONE 1 GM/50 ML BAG ONE (03:18)
[2021-02-20] MEDS ORDERED: LACTATED RINGERS SOLUTION 1,000 ML IV SCH (05:00)
[2021-02-20] MEDS ORDERED: TRIMETHOBENZAMIDE HCL 200MG/2ML INJ IM PRN (05:15)
[2021-02-20] MEDS ORDERED: SODIUM CHLORIDE 1,000 ML IV SCH (05:15)
[2021-02-20 08:18] LABS: BASO % 0.8 % (0-2.0); HEMOGLOBIN 11.7 GM/dL (10.7-15.3); LYMPH % 11.3 % (8-40); MCH 28.1 pg (25.7-33.7); MCHC 34.3 g/dl (32.0-36.0); MEAN CELL VOLUME 81.9 fl (80-96); MEAN PLT VOLUME 8.3 fl (7.5-11.1); MONO % 5.2 % (3.8-10.2); NEUT % 82.7 % (42.8-82.8); PLATELET COUNT 229 10^3/uL (134-434); RBC 4.15 M/mm3 (3.60-5.2); RDW 14.4 % (11.6-15.6); WHITE BLOOD COUNT 11.1 K/mm3 (4.0-10.0)
[2021-02-20 08:23] LABS: INR 1.2 (0.83-1.09); PROTHROMBIN TIME (PATIENT) 14.4 SEC (9.7-13.0)
[2021-02-20 08:26] LABS: ACTIVATED PTT 28.4 SECONDS (25.2-36.5)
[2021-02-20 08:43] LABS: BLOOD UREA NITROGEN 7.8 mg/dL (7-18); CALCIUM 8.2 mg/dL (8.5-10.1); MAGNESIUM 1.9 mg/dL (1.8-2.4)
[2021-02-20 08:46] LABS: CREATININE 0.8 mg/dL (0.55-1.3)
[2021-02-20] MEDS ORDERED: DEXTROSE 5%-0.45% SALINE 1,000 ML IV SCH (10:30)
[2021-02-20] MEDS: PANTOPRAZOLE SODIUM 40 MG VIAL IVPUSH SCH (11:11)
[2021-02-20] MEDS: ENOXAPARIN NA (PORCINE) 40 MG/0.4 ML DISP.SYRIN SQ SCH (11:11)
[2021-02-20] MEDS: ONDANSETRON 4 MG/2 ML VIAL IVPB PRN ×2 (12:35→22:09)
[2021-02-20] MEDS: KCL 10 MEQ IVPB 10 MEQ/100 ML INFUS.BAG IVPB SCH ×3 (12:35→15:05)
[2021-02-20] MEDS: D5-LR+20 MEQ KCL - 20 MEQ/1,000 ML INFUS.BAG IV SCH (15:08)
[2021-02-20 18:33] LABS: EPI CELLS 18 /uL (0-25.1); HYALINE CASTS 1 /uL (0-3.1); URINE APPEARANCE CLEAR; URINE BACTERIA 93 /uL (0-1359); URINE BILIRUBIN NEGATIVE (NEGATIVE); URINE COLOR YELLOW; URINE GLUCOSE (UA) NEGATIVE (NEGATIVE); URINE KETONE 1+ (NEGATIVE); URINE LEUK ESTERASE NEGATIVE (NEGATIVE); URINE NITRITE NEGATIVE (NEGATIVE); URINE PROTEIN 1+ (NEGATIVE); URINE RBC 101 /uL (0-23.9); URINE UROBILINOGEN 0.2 mg/dL (0.2-1.0); URINE WBC 47 /uL (0-25.8)
[2021-02-20] MEDS: POLYETHYLENE GLYCOL (HEALTHYLAX) 3350 17 GM PACKET PO SCH (21:50)
[2021-02-21] MEDS ORDERED: ACETAMINOPHEN 1000 MG/100 ML VIAL (NON FORMULARY) IVPB ONE (05:25)
[2021-02-21] MEDS: POLYETHYLENE GLYCOL (HEALTHYLAX) 3350 17 GM PACKET PO SCH ×3 (06:04→22:28)
[2021-02-21] MEDS: D5-LR+20 MEQ KCL - 20 MEQ/1,000 ML INFUS.BAG IV SCH (06:09)
[2021-02-21 09:54] LABS: BASO % 0.9 % (0-2.0); EOS % 0.3 % (0-4.5); HEMOGLOBIN 12.9 GM/dL (10.7-15.3); LYMPH % 16.4 % (8-40); MCH 27.7 pg (25.7-33.7); MCHC 33.9 g/dl (32.0-36.0); MEAN CELL VOLUME 81.9 fl (80-96); MEAN PLT VOLUME 8.3 fl (7.5-11.1); MONO % 7.1 % (3.8-10.2); NEUT % 75.3 % (42.8-82.8); PLATELET COUNT 304 10^3/uL (134-434); RBC 4.64 M/mm3 (3.60-5.2); RDW 14.3 % (11.6-15.6); WHITE BLOOD COUNT 15.9 K/mm3 (4.0-10.0)
[2021-02-21] MEDS ORDERED: CEFTRIAXONE 1 GM in DEXTROSE 5%-WATER - 50 ML IVPB SCH (10:00)
[2021-02-21 10:15] LABS: BLOOD UREA NITROGEN 8.5 mg/dL (7-18); CALCIUM 9.3 mg/dL (8.5-10.1)
[2021-02-21 10:16] LABS: ALBUMIN 4.3 g/dl (3.4-5.0)
[2021-02-21 10:18] LABS: TOT PROT 8.1 g/dl (6.4-8.2)
[2021-02-21 10:19] LABS: CREATININE 0.9 mg/dL (0.55-1.3)
[2021-02-21 10:20] LABS: BILIRUBIN,TOTAL 0.9 mg/dL (0.2-1)
[2021-02-21] MEDS ORDERED: cefTRIAXone SODIUM 1 GM VIAL ONE (11:05)
[2021-02-21] MEDS ORDERED: DEXTROSE 5%-WATER - 50 ML IVPB ONE (11:06)
[2021-02-21] MEDS: PANTOPRAZOLE SODIUM 40 MG VIAL IVPUSH SCH (11:09)
[2021-02-21] MEDS: ENOXAPARIN NA (PORCINE) 40 MG/0.4 ML DISP.SYRIN SQ SCH (11:09)
[2021-02-21] MEDS ORDERED: LEVOTHYROXINE SODIUM 100 MCG VIAL IVPUSH ONE (17:45)
[2021-02-21 22:23] VITALS: BP 152/84; PULSE 64; TEMP 99.2
== END 2021-02-21 22:45 | disposition home or self-care (01) | DRG 254 ==
LOC: JER 21:30 → JERBED 02-20 02:08 → J6S 02-20 09:13
PROVIDERS: ADMIT Internal Medicine; ATTEND Internal Medicine
DX: K31.84 Gastroparesis (principal); K52.9 Noninfective gastroenteritis and colitis, unspecified; N39.0 Urinary tract infection, site not specified; E03.9 Hypothyroidism, unspecified; G35 Multiple sclerosis; K76.0 Fatty (change of) liver, not elsewhere classified; B96.20 Unspecified Escherichia coli [E. coli] as the cause of diseases classified elsewhere; K59.00 Constipation, unspecified; Z91.14 Patient's other noncompliance with medication regimen; D72.829 Elevated white blood cell count, unspecified; E66.9 Obesity, unspecified; Z68.35 Body mass index [BMI] 35.0-35.9, adult; R11.2 Nausea with vomiting, unspecified
CPT/HCPCS: 36415; 71045-TC-FY; 74177-TC; 80048; 80053; 81003; 83690; 83735; 84100; 84439; 84443; 84484; 84703; 85025; 85610; 85730; 86140; 87086; 87186; 93005; 93010; 99285-25; C9803; J0131; Q9967; U0003; U0005

== ENCOUNTER 2021-07-10 19:06 | Emergency (ER) | payer OTHER ==
[2021-07-10 19:12] VITALS: BP 129/49; PULSE 67; TEMP 98.8; BMI 32.0
[2021-07-10] MEDS ORDERED: AZITHROMYCIN 250 MG TABLET ONE (19:22)
[2021-07-10] MEDS ORDERED: AMOX TR/POT CLAV 500MG/125MG TABLETS (FP) PO ONE (19:23)
[2021-07-10] MEDS ORDERED: AMOX TR/POT CLAV 500MG/125MG TABLETS (FP) ONE (19:27)
== END 2021-07-10 19:38 | disposition home or self-care (01) ==
LOC: FER 19:06
DX: H66.92 Otitis media, unspecified, left ear (principal)
CPT/HCPCS: 99283-25

== ENCOUNTER 2024-06-07 04:28 | Day surgery (SDC) | payer OTHER ==
[2024-06-05 12:45] VITALS: BMI 34.2
[2024-06-07] MEDS ORDERED: ACETAMINOPHEN 500 MG TABLET (FP) PO PRN (08:37)
[2024-06-07 14:45] VITALS: BP 126/78; PULSE 57; RESP 20; TEMP 97.5
== END 2024-06-07 15:59 | disposition home or self-care (01) ==
LOC: JASU-SURG 04:28
PROVIDERS: ATTEND Pain Medicine Pain Medicine
PROC: 3E0R3BZ Introduction of Anesthetic Agent into Spinal Canal, Percutaneous Approach (ICD-10-PCS; 2024-06-07)
PROC: 3E0R33Z Introduction of Anti-inflammatory into Spinal Canal, Percutaneous Approach (ICD-10-PCS; principal; 2024-06-07 14:16)
DX: M54.16 Radiculopathy, lumbar region (principal)
CPT/HCPCS: 76000-TC-FY; 81025

== ENCOUNTER → 2024-09-13 | Day surgery (SDC) | payer OTHER ==
[~2024-09-13] MED LIST: ACETAMINOPHEN 500 MG TABLET (FP) PO PRN; BUPIVACAINE HCL/PF 0.5% (5MG/ML) 10 ML VIAL ONE; LIDOCAINE HCL/PF 1% SDV 5ML VIAL ONE; TRIAMCINOLONE ACET 40MG/1ML VIAL ONE
== END | disposition home or self-care (01) ==
LOC: JASU-SURG 04:15
PROVIDERS: ATTEND Pain Medicine Pain Medicine
DX: Z53.8 Procedure and treatment not carried out for other reasons (principal)

== ENCOUNTER 2024-11-15 07:16 | Day surgery (SDC) | payer OTHER ==
[2024-11-14 15:50] VITALS: BMI 32.9
[2024-11-15] MEDS ORDERED: LIDOCAINE HCL/PF 1% SDV 5ML VIAL ONE ×2 (14:15→14:16)
[2024-11-15] MEDS: IOHEXOL 180 MG/1 ML ML IJ ONE (14:51)
[2024-11-15] MEDS: LIDOCAINE 1% P/F 10 MG/ML VIAL INF ONE (14:52)
[2024-11-15] MEDS: BUPIVACAINE HCL/PF 0.5% (5 MG/ML) 30 ML VIAL IJ ONE (14:53)
[2024-11-15] MEDS: TRIAMCINOLONE ACET 40MG/1ML VIAL IM ONE (14:53)
[2024-11-15 15:14] VITALS: BP 111/50; PULSE 72; RESP 18; TEMP 97.5
== END 2024-11-15 15:43 | disposition home or self-care (01) ==
LOC: JASU-SURG 07:16
PROVIDERS: ATTEND Pain Medicine Pain Medicine
PROC: 3E0U3BZ Introduction of Anesthetic Agent into Joints, Percutaneous Approach (ICD-10-PCS; 2024-11-15)
PROC: 3E0U33Z Introduction of Anti-inflammatory into Joints, Percutaneous Approach (ICD-10-PCS; principal; 2024-11-15 14:45)
DX: M53.3 Sacrococcygeal disorders, not elsewhere classified (principal)
CPT/HCPCS: 76000-TC-FY

== ENCOUNTER 2025-01-19 19:57 | Emergency (ER) | payer OTHER ==
[2025-01-19 20:10] VITALS: BP 118/51; PULSE 74; RESP 16; TEMP 98.2; BMI 32.9
[2025-01-19] MEDS ORDERED: NEOMYCIN/POLYMYXN/HC OTIC SUSPENSION 10 ML BOTTLE ONE (21:10)
[2025-01-19] MEDS: NEOMYCIN/POLYMYXN/HC OTIC SUSPENSION 10 ML BOTTLE AS ONE (21:20)
[2025-01-20] MEDS ORDERED: NEOMYCIN/POLYMYXN/HC OTIC SUSPENSION 10 ML BOTTLE AS ONE (21:12)
== END 2025-01-19 21:20 | disposition home or self-care (01) ==
LOC: FER 19:57
DX: H65.02 Acute serous otitis media, left ear (principal); H60.502 Unspecified acute noninfective otitis externa, left ear
CPT/HCPCS: 99283-25

== ENCOUNTER 2025-02-14 07:25 | Day surgery (SDC) | payer OTHER ==
[2025-02-14] MEDS ORDERED: ACETAMINOPHEN 500 MG TABLET (FP) PO PRN (08:51)
[2025-02-14] MEDS: LIDOCAINE HCL 1% PRESERVATIVE FREE - 30ML VIAL IJ ONE ×2 (09:27)
[2025-02-14] MEDS: IOHEXOL 180 MG/1 ML ML IJ ONE ×2 (09:30)
[2025-02-14] MEDS: DEXAMETHASONE SOD PHOSPHATE 10 MG/1 ML VIAL IM ONE ×2 (09:31)
[2025-02-14 09:51] VITALS: BP 119/61; PULSE 58; RESP 18; TEMP 98.3
== END 2025-02-14 10:10 | disposition home or self-care (01) ==
LOC: JASU-SURG 07:25
PROVIDERS: ATTEND Pain Medicine Pain Medicine
PROC: 3E0R3BZ Introduction of Anesthetic Agent into Spinal Canal, Percutaneous Approach (ICD-10-PCS; 2025-02-14)
PROC: 3E0R33Z Introduction of Anti-inflammatory into Spinal Canal, Percutaneous Approach (ICD-10-PCS; principal; 2025-02-14 09:15)
DX: M54.16 Radiculopathy, lumbar region (principal)
CPT/HCPCS: 76000-TC-FY; J1100

== ENCOUNTER 2025-05-23 06:07 | Day surgery (SDC) | payer OTHER ==
[2025-05-23 11:36] VITALS: RESP 18
[2025-05-23] MEDS: LIDOCAINE HCL 1% PRESERVATIVE FREE - 30ML VIAL IJ ONE (13:30)
[2025-05-23] MEDS: IOHEXOL 180 MG/1 ML ML IJ ONE (13:31)
[2025-05-23] MEDS: DEXAMETHASONE SOD PHOSPHATE 10 MG/1 ML VIAL IVPUSH ONE (13:33)
[2025-05-23 15:00] VITALS: BP 119/72; PULSE 76; TEMP 97.7
[2025-05-23] MEDS ORDERED: ACETAMINOPHEN 500 MG TABLET (FP) PO PRN (19:52)
== END 2025-05-23 14:30 | disposition home or self-care (01) ==
LOC: JASU-SURG 06:07
PROVIDERS: ATTEND Pain Medicine Pain Medicine
PROC: 3E0R3BZ Introduction of Anesthetic Agent into Spinal Canal, Percutaneous Approach (ICD-10-PCS; 2025-05-23)
PROC: 3E0R33Z Introduction of Anti-inflammatory into Spinal Canal, Percutaneous Approach (ICD-10-PCS; principal; 2025-05-23 12:45)
DX: M54.16 Radiculopathy, lumbar region (principal)
CPT/HCPCS: 76000-TC-FY; J1100